=== PATIENT | male | born 1995 | race Hispanic/Latino ===

== ENCOUNTER 2019-04-02 22:22 | Emergency (ER) | payer OTHER ==
[~2019-04-02] VITALS: Ht 195.6 cm; Wt 105.5 kg
[2019-04-02 22:22] VITALS: BP 127/72
[~2019-04-02 22:22] MED LIST: IBUP-1022 PO
== END 2019-04-03 03:22 | disposition left against medical advice (07) ==
LOC: M ED 22:22
DX: R06.02 Shortness of breath (principal); Z53.21 Procedure and treatment not carried out due to patient leaving prior to being seen by health care provider